=== PATIENT | female | born 1955 | race Hispanic/Latino ===

== ENCOUNTER 2023-01-26 07:55 | Outpatient (CLI) | payer MEDICARE | END 2023-01-26 07:56 | disposition home or self-care (01) | LOC: CSHMAMMO 07:55 | PROVIDERS: ATTEND Physician Assistant | DX: Z13.820 Encounter for screening for osteoporosis (principal); Z78.0 Asymptomatic menopausal state; M81.0 Age-related osteoporosis without current pathological fracture; M85.88 Other specified disorders of bone density and structure, other site | CPT/HCPCS: 77080 ==